=== PATIENT | male | born 1955 | race Caucasian/White ===

== ENCOUNTER 2019-10-05 08:52 | Outpatient (CLI) | payer MEDICARE ==
--- NOTE | 2019-10-05 10:41 | MRI ---
MR the lumbar spine without contrast INDICATION: Low back pain and acute right leg pain COMPARISON: None. TECHNIQUE: Multiplanar multisequence MR images were obtained of lumbar spine without IV contrast. FINDINGS: Bone marrow: Bone marrow signal intensity demonstrates heterogeneous regions of suspected red and yel low marrow involving the lumbosacral spine. There is an Modic endplate degenerative changes at T12-L1. Distal spinal cord and conus: Normal. The conus seen to terminate at L1. Visualized retroperitoneum and paraspinal soft tissues: Normal. Vertebral levels: L5-S1: There is an asymmetric to the left broad-based disc bulge with facet hypertrophy and loss of d isc space height inducing moderate right and moderate to severe left neural foraminal narrowing. There is also mild narrowing of the left lateral recess without definite impingement of the traversin g left S1 nerve root.. L4-5: There is grade 1 anterolisthesis of L4 and L5 with a broad-based disc bulge and loss of disc sp michelle height present. There is also prominent facet hypertrophy. The constellation of findings induces severe right and moderate to severe left neural foraminal narrowing. There is also mild to mo derate central canal narrowing at this level. L3-4: There is a broad-based bulge with facet hypertrophy inducing mild central canal narrowing with moderate to severe bilateral neural foraminal narrowing. L2-3: There is a broad-based bulge with facet joint degenerative change inducing mild central canal n arrowing with moderate right and mild left neural foraminal narrowing L1-L2: There is a broad-based bulge with facet hypertrophy but no appreciable central canal or neural foraminal narrowing. T12-L1: There is a broad-based bulge with facet hypertrophy but no appreciable central canal or neura l foraminal narrowing IMPRESSION: 1. Severe right and moderate to severe left neural foraminal narrowing at L4-5. 2. Moderate to severe bilateral neural foraminal L3-4. 3. Moderate to severe left and moderate right neural foraminal narrowing at L5-S1. 4. Mild left lateral recess narrowing at L5-S1 without definite impingement of the traversing left S1 nerve root. 5. [id number] central canal narrowing at L4-5. Mild central canal narrowing at L3-4. 6. Moderate right and mild left neural foraminal narrowing at L2-3.
== END 2019-10-05 08:53 | disposition home or self-care (01) ==
LOC: TBSIIMAG 08:52
PROVIDERS: ATTEND Neurological Surgery
DX: M54.16 Radiculopathy, lumbar region (principal); M48.061 Spinal stenosis, lumbar region without neurogenic claudication; M48.07 Spinal stenosis, lumbosacral region
CPT/HCPCS: 72148

== ENCOUNTER 2022-11-03 22:16 | Emergency (ER) | payer MEDICARE ==
[2022-11-03] MEDS ORDERED: Diazepam 10 MG/2 ML SYRINGE ONE (23:26)
[2022-11-03] MEDS ORDERED: Ketorolac Tromethamine 30 MG/ML VIAL ONE (23:26)
[2022-11-03] MEDS ORDERED: Morphine 4 MG/ML VIAL ONE (23:26)
== END 2022-11-04 00:45 | disposition home or self-care (01) ==
LOC: ERS 22:16
DX: M54.2 Cervicalgia (principal); Z79.82 Long term (current) use of aspirin
CPT/HCPCS: 72125; 96374; 96375; J1885; J2270; J3360